=== PATIENT | male | born 1975 | race Caucasian/White ===

== ENCOUNTER 2018-09-05 12:24 | Emergency (ER) | payer OTHER ==
[~2018-09-05] VITALS: Ht 180.3 cm; Wt 117.0 kg
[2018-09-05] MEDS ORDERED: COTEMPLA XR-O25.9 MG PO (12:52)
[2018-09-05] MEDS ORDERED: ALLOPURINOL 10100 M1 PO (12:52)
[2018-09-05 13:05] LABS: ABSOLUTE NEUTROPHILS 11.4 thou/uL (1.4-8.2); BASOPHILS 0.1 % (0.0-2.0); EOSINOPHILS 0.6 % (0.0-3.0); HEMATOCRIT 48.4 % (42.0-52.0); HEMOGLOBIN 16.5 gm/dL (14.0-18.0); LYMPHOCYTES 3.4 % (24.0-44.0); MCH 28.5 pg (26.0-34.0); MCHC 34.1 g/dL (28.0-37.0); MCV 83.5 fL (80.0-100.0); MONOCYTES 5.2 % (1.0-8.0); PLATELET COUNT 226 thou/uL (150-400); POLYS 90.7 % (36.0-66.0); RDW 13.1 % (10.5-14.5); WBC 12.5 thou/uL (4.0-11.0)
[2018-09-05 13:27] LABS: ANION GAP 6 mmol/L (7-16); BUN 21 mg/dL (7-18); CALCIUM 8.7 mg/dL (8.5-10.1); CHLORIDE 99 mmol/L (98-107); CO2 29 mmol/L (21-32); GLUCOSE 129 mg/dL (74-106); POTASSIUM 4.6 mmol/L (3.5-5.1); SODIUM 134 mmol/L (136-145)
[2018-09-05 13:31] LABS: ALBUMIN 4.1 g/dL (3.4-5.0); LIPASE 115 U/L (73-393); SGOT 33 U/L (15-37); SGPT 46 U/L (30-65); TOTAL PROTEIN 8.1 g/dL (6.4-8.2); TROPONIN-I <0.06 ng/mL (<0.06)
[2018-09-05 14:20] VITALS: BP 110/69
[2018-09-05] MEDS ORDERED: NORCO 5-325 TA1 EACH PO (15:56)
[2018-09-05] MEDS ORDERED: OMEPRAZOLE 20 M20 M1 PO (15:56)
[2018-09-05] MEDS ORDERED: ONDANSETRON HCL4 M2 PO (16:27)
--- NOTE | 2018-09-06 13:34 | EKG ---
[facility] [place] [address] ELECTROCARDIOGRAM REPORT Name: JOSE SULLIVAN Room #: [facility]#: [id number] ������������������ Admission: 09/05/18 ������������������ Attend Phys: Discharge: ������������������ Date of : 77 Report #: [id number] ����������������������������������������������������������������� [id number] THIS REPORT FOR: //name// [facility] ED Test Date: 2018-09-05 Test Time: 12:30:37 Pat Name: JOSE SULLIVAN Department: Room: Gender: [employer]: KKODJOVI : 1975 Requested By: Vivian Zuñiga Order Number: [id number] MD: Ramesh Romero Measurements Intervals [place] Rate: 65 P: 41 [place]: 147 QRS: 52 QRSD: 85 T: 34 QT: 418 QTc: 435 Interpretive Statements Sinus rhythm Otherwise normal tracing No previous ECG available for comparison Electronically Signed On 09-06-2018 13:34:00 CDT by Ramesh Romero [email or web address] ��������������������������������������������� <ELECTRONICALLY SIGNED> ���������������������������������������� By: Ramesh Romero MD, [facility] ��������������������������������������������� 09/06/18 1334 1230 1230 Ramesh Romero MD, FACC /EPI
== END 2018-09-05 20:58 | disposition home or self-care (01) ==
LOC: ER 12:24
PROVIDERS: Physician Assistant
DX: R10.11 Right upper quadrant pain (principal); R07.89 Other chest pain; R11.2 Nausea with vomiting, unspecified; Z87.442 Personal history of urinary calculi; Z91.013 Allergy to seafood